=== PATIENT | female | born 1985 | race American Indian/Alaskan Native ===

== ENCOUNTER 2019-02-16 11:47 | Outpatient (CLI) | payer MEDICAID ==
[2019-02-16 12:08] VITALS: BP 108/57
[2019-02-16] MEDS ORDERED: LACTATED RINGERS 1,000 ML IV ONE (13:00)
[2019-02-16 13:16] LABS: Hematocrit 33.5 % (30.3-42.9); Hemoglobin 11.7 gm/dl (10.1-14.3); Mean Corpuscular HGB Conc 35 % (30-34); Mean Corpuscular Volume 81 fl (79-97); Platelet Count 280 K/mm3 (140-440); Red Blood Count 4.16 M/mm3 (3.65-5.03); Red Cell Distribution Width 14.7 % (13.2-15.2)
[2019-02-16 13:25] LABS: Bacteria,Urine 3+ /HPF (Negative); Bilirubin,Urine NEG (Negative); Blood,Urine SM (Negative); Color,Urine Yellow (Yellow); Mucus,Urine FEW /HPF; Protein,Urine <15 mg/dL mg/dL (Negative); Urobilinogen,Urine < 2.0 mg/dL (<2.0)
[2019-02-16 13:36] LABS: Alanine Aminotransferase 10 units/L (7-56); Albumin 3.2 g/dL (3.9-5); BUN/Creatinine Ratio 18; Blood Urea Nitrogen 9 mg/dL (7-17); Calcium 8.4 mg/dL (8.4-10.2); Hemolysis Index 29
--- NOTE | 2019-02-16 14:23 | Ultrasound Report ---
ULTRASOUND BIOPHYSICAL PROFILE INDICATION / CLINICAL INFORMATION: Evaluate GUMARO. COMPARISON: No prior studies are available for comparison. FINDINGS: BREATHING MOVEMENT = 2 GROSS BODY MOVEMENT = 2 TONE = 2 QUALITATIVE AMNIOTIC FLUID VOLUME = 2 TOTAL BIOPHYSICAL SCORE = 8 AMNIOTIC FLUID INDEX (cm) = 13.8 PRESENTATION: Cephalic. HEART RATE (beats per minute): 143 Placental location is anterior. IMPRESSION: 1. biophysical profile = 11/22 Signer Name: Lily Mota MD Signed: 02/16/2019 2:18 PM Workstation Name: [id number]
== END 2019-02-16 13:13 | disposition home or self-care (01) ==
LOC: TRG 11:47
PROVIDERS: ATTEND Obstetrics & Gynecology
DX: O26.893 Other specified pregnancy related conditions, third trimester (principal); R42 Dizziness and giddiness; R25.2 Cramp and spasm; Z3A.38 38 weeks gestation of pregnancy; Z87.891 Personal history of nicotine dependence
CPT/HCPCS: 36415; 59025; 76819; 80053; 81001; 85027; 87086; 96360; J7120